=== PATIENT | female | born 1940 | race Caucasian/White ===

== ENCOUNTER → 2019-12-02 | Outpatient (CLI) | payer BC, OTHER ==
[~2019-12-02] MED LIST: PROAIR HFA8.5 GM INH; PROTONIX40 M2 PO; ZESTRIL20 MG PO
== END ==
LOC: LAB 09:49
PROVIDERS: ATTEND Surgery Vascular Surgery
DX: Z01.812 Encounter for preprocedural laboratory examination (principal); Z20.828 Contact with and (suspected) exposure to other viral communicable diseases

== ENCOUNTER → 2019-12-02 | Outpatient (CLI) | payer BC, OTHER ==
[~2019-12-02] MED LIST changes: +ASPIR 8181 MG PO; +ATORVASTATIN CA80 MG PO; +FERREX 150 PLU1 EAC1 PO; +TOPROL XL25 MG PO
== END ==
LOC: ULTRA 09:04
PROVIDERS: ATTEND Surgery Vascular Surgery
DX: Z01.818 Encounter for other preprocedural examination (principal); I25.119 Atherosclerotic heart disease of native coronary artery with unspecified angina pectoris; I65.23 Occlusion and stenosis of bilateral carotid arteries

== ENCOUNTER 2019-12-05 06:10 | Inpatient (IN) | payer MEDICARE, OTHER ==
[2019-12-02 12:28] LABS: ABSOLUTE NEUTROPHILS 3.8 thou/uL (1.4-8.2); BASOPHILS 0.8 % (0.0-2.0); EOSINOPHILS 1.9 % (0.0-3.0); HEMATOCRIT 38.6 % (37.0-47.0); HEMOGLOBIN 12.7 gm/dL (12.0-15.0); LYMPHOCYTES 30.3 % (24.0-44.0); MCH 29.3 pg (26.0-34.0); MCHC 32.9 g/dL (28.0-37.0); MONOCYTES 6.5 % (1.0-8.0); PLATELET COUNT 356 thou/uL (150-400); POLYS 60.5 % (36.0-66.0); RBC 4.34 mil/uL (4.20-5.00); RDW 13.2 % (10.5-14.5); URINE BILIRUBIN NEGATIVE (Negative); URINE BLOOD 1+ (Negative); URINE CLARITY CLEAR; URINE COLOR YELLOW; URINE GLUCOSE-RANDOM* NEGATIVE (Negative); URINE KETONES NEGATIVE (Negative); URINE LEUKOCYTES-REFLEX 1+ (Negative); URINE NITRITE-REFLEX NEGATIVE (Negative); URINE PROTEIN (DIPSTICK) NEGATIVE (Negative); URINE SPECIFIC GRAVITY 1.025 (1.005-1.035); URINE UROBILINOGEN 0.2 E.U./dl (0.2-1.0); WBC 6.2 thou/uL (4.0-11.0)
--- NOTE | 2019-12-02 12:41 | EKG ---
[facility] [place] [address] ELECTROCARDIOGRAM REPORT Name: OLIMPIA WOOD Room #: [facility] IN ..#: [id number] Admission: Attend Phys: Joel Emerson MD Discharge: Date of : 44 Report #: [id number] THIS REPORT FOR: cc: Jason Ovalles MD, Douglas W. MD Santiago, Patrick MD [facility] ~ THIS REPORT FOR: //name// [facility] Test Date: 2019-12-02 Test Time: 11:55:11 Pat Name: OLIMPIA WOOD Department: Room: Gender: F Supervisor Lime: Sarah HOOK : 1940 Requested By: Joel Emerson Order Number: [id number] : Saúl Hardwick Measurements Intervals [place] Rate: 65 P: 34 NC: 141 QRS: -6 QRSD: 108 T: 32 QT: 407 QTc: 424 Interpretive Statements Sinus rhythm Borderline low voltage, extremity leads No previous ECG available for comparison Electronically Signed On 12-02-2019 12:41:44 CDT by Saúl Hardwick [email or web address] <ELECTRONICALLY SIGNED> By: Saúl Hardwick MD, FACC 12/02/19 1241 1155 1155 Saúl Hardwick MD, FACC /EPI
[2019-12-02 12:43] LABS: APTT 29.8 Seconds (24.5-32.8); PROTIME 10.1 Seconds (9.3-11.4)
[2019-12-02 12:46] LABS: ALBUMIN 3.9 g/dL (3.4-5.0); CALCIUM 8.7 mg/dL (8.5-10.1); CREATININE 0.9 mg/dL (0.6-1.0); POTASSIUM 4.6 mmol/L (3.5-5.1); TOTAL BILIRUBIN 0.4 mg/dL (0.2-1.0); TOTAL PROTEIN 7.8 g/dL (6.4-8.2)
[2019-12-02 13:14] LABS: SQUAMOUS >10 Many /LPF (0-3)
[2019-12-02 13:15] LABS: CASTS None Seen /LPF (None Seen); CRYSTALS None Seen /LPF (None Seen); MUCUS 0-3 Light strn/LPF (None Seen); URINE RBC 3-10 Few /HPF (0-2); URINE WBC-REFLEX 6-15 Few /HPF (0-5)
[2019-12-03 01:06] LABS: GLYCOHEMOGLOBIN (HGB A1C) 6.1 % (4.8-5.6)
[~2019-12-05] VITALS: Ht 162.6 cm; Wt 109.8 kg
[2019-12-05] VITALS (15 sets, daily range): BP systolic 78–143; BP diastolic 36–69
[~2019-12-05 06:10] MED LIST changes: -ASPIR 8181 MG PO; -ATORVASTATIN CA80 MG PO; -FERREX 150 PLU1 EAC1 PO; -TOPROL XL25 MG PO
[2019-12-05 14:14] LABS: MCH 29.2 pg (26.0-34.0); MCHC 32.9 g/dL (28.0-37.0); MCV 88.8 fL (80.0-100.0); RBC 2.56 mil/uL (4.20-5.00); RDW 12.9 % (10.5-14.5); WBC 15.9 thou/uL (4.0-11.0)
[2019-12-05 14:15] LABS: HEMATOCRIT 22.8 % (37.0-47.0); HEMOGLOBIN 7.5 gm/dL (12.0-15.0)
[2019-12-05 14:35] LABS: APTT 26.9 Seconds (24.5-32.8); FIBRINOGEN 187.2 mg/dL (210-360); INR 1.5; PROTIME 15.7 Seconds (9.3-11.4)
[2019-12-05 14:56] LABS: POC BE 0 mmol/L (-2.0 to +3.0); POC CA IONIZED 4.7 mg/dL (4.5-5.3); POC GLUCOSE 116 mg/dL (70-99); POC HEMOGLOBIN 11.6 g/dL (12.0-15.0); POC POTASSIUM 4.3 mmol/L (3.5-5.1); POC SODIUM 137 mmol/L (136-145); POC pCO2 36.1 mmHg (35.0-45.0)
[2019-12-05 14:56] LABS: POC BE 2 mmol/L (-2.0 to +3.0); POC CA IONIZED 4.1 mg/dL (4.5-5.3); POC GLUCOSE 125 mg/dL (70-99); POC HCO3 25.6 mmol/L (22.0-26.0); POC HEMOGLOBIN 8.8 g/dL (12.0-15.0); POC POTASSIUM 4.5 mmol/L (3.5-5.1); POC SODIUM 138 mmol/L (136-145); POC pCO2 36.9 mmHg (35.0-45.0); POC pH 7.449 (7.360-7.450)
[2019-12-05 14:56] LABS: POC BE -2 mmol/L (-2.0 to +3.0); POC CA IONIZED 4.6 mg/dL (4.5-5.3); POC GLUCOSE 147 mg/dL (70-99); POC HCO3 23.6 mmol/L (22.0-26.0); POC HEMOGLOBIN 10.9 g/dL (12.0-15.0); POC POTASSIUM 3.9 mmol/L (3.5-5.1); POC SODIUM 138 mmol/L (136-145); POC pH 7.368 (7.360-7.450)
[2019-12-05 14:56] LABS: POC BE -2 mmol/L (-2.0 to +3.0); POC CA IONIZED 4.4 mg/dL (4.5-5.3); POC GLUCOSE 131 mg/dL (70-99); POC HCO3 23.3 mmol/L (22.0-26.0); POC HEMOGLOBIN 8.5 g/dL (12.0-15.0); POC POTASSIUM 3.9 mmol/L (3.5-5.1); POC SODIUM 142 mmol/L (136-145); POC pCO2 40.3 mmHg (35.0-45.0); POC pH 7.369 (7.360-7.450)
[2019-12-05 14:57] LABS: POC BE -3 mmol/L (-2.0 to +3.0); POC CA IONIZED 5.1 mg/dL (4.5-5.3); POC GLUCOSE 129 mg/dL (70-99); POC HCO3 22.7 mmol/L (22.0-26.0); POC HEMOGLOBIN 8.2 g/dL (12.0-15.0); POC POTASSIUM 4.1 mmol/L (3.5-5.1); POC SODIUM 142 mmol/L (136-145); POC pCO2 43.1 mmHg (35.0-45.0)
[2019-12-05 14:57] LABS: POC BE -4 mmol/L (-2.0 to +3.0); POC CA IONIZED 4.8 mg/dL (4.5-5.3); POC GLUCOSE 122 mg/dL (70-99); POC HCO3 21.6 mmol/L (22.0-26.0); POC HEMOGLOBIN 8.8 g/dL (12.0-15.0); POC POTASSIUM 4.1 mmol/L (3.5-5.1); POC SODIUM 142 mmol/L (136-145); POC pCO2 39.5 mmHg (35.0-45.0); POC pH 7.347 (7.360-7.450)
[2019-12-05 14:57] LABS: POC BE -1 mmol/L (-2.0 to +3.0); POC CA IONIZED 4.3 mg/dL (4.5-5.3); POC GLUCOSE 133 mg/dL (70-99); POC HEMOGLOBIN 8.5 g/dL (12.0-15.0); POC POTASSIUM 3.7 mmol/L (3.5-5.1); POC SODIUM 142 mmol/L (136-145); POC pCO2 42.3 mmHg (35.0-45.0); POC pH 7.362 (7.360-7.450)
[2019-12-05 14:57] LABS: POC BE -1 mmol/L (-2.0 to +3.0); POC CA IONIZED 4.3 mg/dL (4.5-5.3); POC GLUCOSE 127 mg/dL (70-99); POC HCO3 24.5 mmol/L (22.0-26.0); POC HEMOGLOBIN 8.2 g/dL (12.0-15.0); POC POTASSIUM 4.1 mmol/L (3.5-5.1); POC SODIUM 142 mmol/L (136-145); POC pCO2 44.2 mmHg (35.0-45.0); POC pH 7.352 (7.360-7.450)
[2019-12-05 14:57] LABS: POC BE -1 mmol/L (-2.0 to +3.0); POC CA IONIZED 4.5 mg/dL (4.5-5.3); POC GLUCOSE 132 mg/dL (70-99); POC HCO3 23.9 mmol/L (22.0-26.0); POC HEMOGLOBIN 8.8 g/dL (12.0-15.0); POC POTASSIUM 3.9 mmol/L (3.5-5.1); POC SODIUM 140 mmol/L (136-145); POC pCO2 40.5 mmHg (35.0-45.0); POC pH 7.378 (7.360-7.450)
[2019-12-05 16:01] LABS: HEMATOCRIT 27.2 % (37.0-47.0); HEMOGLOBIN 8.9 gm/dL (12.0-15.0); MCH 28.9 pg (26.0-34.0); MCHC 32.8 g/dL (28.0-37.0); RBC 3.09 mil/uL (4.20-5.00); RDW 13.3 % (10.5-14.5); WBC 17.5 thou/uL (4.0-11.0)
[2019-12-05 16:12] LABS: BE(vivo) -5.6 mmol/L (-2 to +3); HCO3 20.2 mmol/L (22.0-26.0); PCO2 40.5 mmHg (35.0-45.0); PO2 83.7 mmHg (80.0-100.0); sO2 95.5 % (92.0-98.0)
[2019-12-05 16:14] LABS: pH 7.315 (7.360-7.450)
[2019-12-05 16:23] LABS: CALCIUM 8.1 mg/dL (8.5-10.1); CREATININE 0.7 mg/dL (0.6-1.0); MAGNESIUM 2.6 mg/dL (1.8-2.4); POTASSIUM 4.7 mmol/L (3.5-5.1)
[2019-12-05 16:40] LABS: APTT 27.1 Seconds (24.5-32.8); INR 1.2; PROTIME 11.8 Seconds (9.3-11.4)
--- NOTE | 2019-12-05 16:48 | NUR ---
ASSESSMENTS AND INTERVENTIONS DOCCUMENTED. PATIENT ARRIVED TO THE UNIT AT 1530 WITH ANESTHESIA AND PREMIUM AUDITOR. PATIENT SETTLED INTO ICU ROOM. PATIENT ON PROPOFOL GTT. LINES IN TACT AND PATENT. DR. DEVLIN AND BRIAN HERNANDEZ AT BEDSIDE. NO NEW ORDERS. AROUND 1633, PATIENT'S RUSTY AT BEDSIDE. BRIAN HERNANDEZ SPEAKING WITH . RN UPDATING AND EDUCATING ABOUT POC, GOALS, ICU VISITATION POLICY AND PATIENT'S CODE GIVEN. PATIENT STABLE AT THIS TIME.
[2019-12-05 18:37] LABS: BE(vivo) -5.9 mmol/L (-2 to +3); HCO3 19.2 mmol/L (22.0-26.0); PCO2 36.2 mmHg (35.0-45.0); PO2 122.2 mmHg (80.0-100.0); pH 7.342 (7.360-7.450); sO2 98.3 % (92.0-98.0)
[2019-12-05 20:47] LABS: BE(vivo) -5.5 mmol/L (-2 to +3); HCO3 20.4 mmol/L (22.0-26.0); PCO2 41.8 mmHg (35.0-45.0); PO2 90.4 mmHg (80.0-100.0); pH 7.307 (7.360-7.450); sO2 96.2 % (92.0-98.0)
[2019-12-06] VITALS (14 sets, daily range): BP systolic 105–128; BP diastolic 46–58
--- NOTE | 2019-12-06 00:55 | NUR ---
RECEIVED PATIENT REPORT FROM LISSY MEYERS. ASSUMED PATIENT CARE AT THIS TIME. BEDSIDE CHECKS/INTRODUCTIONS MADE. 0130 PATIENT C/O CONTINUED PAIN 10/10 ML STERNAL CP. PRN HYDROCODONE GIVEN. PATIENT STATED THAT SHE NORMALLY ONLY TAKES TYLENOL AT HOME FOR ANY PAIN. ONLY 1 TAB HYDROCODONE GIVEN AT THIS TIME. PATIENT DID TOLERATE SWALLOWING PILL OK WITH SMALL SIP OF WATER AND BITE OF CRACKER. PATIENT DENIES ANY OTHER NEEDS AT THIS TIME.
[2019-12-06 06:05] LABS: HEMATOCRIT 27.7 % (37.0-47.0); HEMOGLOBIN 9.1 gm/dL (12.0-15.0); MCH 29.1 pg (26.0-34.0); MCHC 32.9 g/dL (28.0-37.0); MCV 88.5 fL (80.0-100.0); RBC 3.13 mil/uL (4.20-5.00); RDW 13.5 % (10.5-14.5); WBC 11.1 thou/uL (4.0-11.0)
[2019-12-06 06:10] LABS: CALCIUM 8.1 mg/dL (8.5-10.1); CREATININE 0.7 mg/dL (0.6-1.0); MAGNESIUM 2.4 mg/dL (1.8-2.4); POTASSIUM 4.2 mmol/L (3.5-5.1)
--- NOTE | 2019-12-06 07:35 | EKG ---
[facility] [place] [address] ELECTROCARDIOGRAM REPORT Name: OLIMPIA WOOD Room #: 249- ADM IN M.R.#: [id number] Admission: 12/05/19 Attend Phys: Joel Emerson MD Discharge: Date of : 44 Report #: [id number] THIS REPORT FOR: cc: Jason Ovalles MD, Douglas W. MD Lundgren,Ugo Newton MD [facility] ~ THIS REPORT FOR: //name// [facility] Test Date: 2019-12-05 Test Time: 15:53:37 Pat Name: OLIMPIA WOOD Department: Room: 249 Gender: F Digital Forensics Examiner: LEXY : 1940 Requested By: Edvin Bo Order Number: [id number] MD: Ugo Gibbons Measurements Intervals [place] Rate: 71 P: 52 HI: 162 QRS: 12 QRSD: 141 T: -1 QT: 459 QTc: 499 Interpretive Statements Sinus rhythm IVCD, consider atypical RBBB Compared to ECG 12/02/2019 11:55:11 No significant changes Electronically Signed On 12-06-2019 7:35:43 CDT by Ugo Gibbons [email or web address] <ELECTRONICALLY SIGNED> By: Ugo Gibbons MD, [facility] 12/06/19 0735 1553 1553 Ugo Gibbons MD, [facility] /EPI
--- NOTE | 2019-12-06 07:42 | EKG ---
[facility] Mery Jaquez [facility] [address] ELECTROCARDIOGRAM REPORT Name: OLIMPIA WOOD Room #: 249-P ADM IN M.R.#: [id number] Admission: 12/05/19 Attend Phys: Joel Emerson MD Discharge: Date of : 44 Report #: [id number] THIS REPORT FOR: cc: Jason Ovalles MD, Douglas W. MD Lundgren,Ugo Newton MD [facility] ~ THIS REPORT FOR: //name// [facility] Test Date: 2019-12-06 Test Time: 07:18:52 Pat Name: OLIMPIA WOOD Department: Room: 249 P Gender: F Spout Tender: MCKENZIE : 1940 Requested By: Edvin Bo Order Number: [id number] MD: Ugo Gibbons Measurements Intervals [place] Rate: 95 P: 47 IA: 133 QRS: 54 QRSD: 128 T: 0 QT: 376 QTc: 473 Interpretive Statements Sinus rhythm Atrial premature complex Possible inferior infarct, age indeterminate Compared to ECG 12/05/2019 15:53:37 Atrial premature complex(es) now present Electronically Signed On 12-06-2019 7:42:10 CDT by Ugo Gibbons [email or web address] <ELECTRONICALLY SIGNED> By: Ugo Gibbons MD, [facility] 1940 7 7 Ugo Gibbons MD, [facility] /EPI
--- NOTE | 2019-12-06 08:00 | NUR ---
DR. DEVLIN HERE. STATES WE SHOULD PUT BED IN CHAIR POSITION SINCE ON CARDENE AND GO SLOWLY. ORDERS GIVEN.
--- NOTE | 2019-12-06 10:55 | NUR ---
RD consult received for diet education. S/P CABG on 12/04. Diet newly advanced. Will determine any nutrition education needs once stable and out of ICU
--- NOTE | 2019-12-06 11:30 | NUR ---
BRIAN RYAN HERE. UPDATE GIVEN. ORDERS GIVEN.
--- NOTE | 2019-12-06 16:14 | NUR ---
chart review. spouse asad visited today. cm spoke with him via phone call. intro to cm and dcp. he reported " 5 acres , 1-2 steps to enter then home all on ground level. she was independent and dont tell her what to do. she manage own medication, and drives vehicle. no dme in past. will cont following as needed for dc needs. dcp from home and dc home would be spouse 1st choice.
--- NOTE | 2019-12-06 16:45 | NUR ---
OOB TO CHAIR WITH PT. PT TOLORATED WELL. TITRATING DOWN ON 02. DENIES PAIN. CATHERINE REMOVED FROM LLE. DSG CDI.
[2019-12-07 05:58] LABS: CREATININE 0.7 mg/dL (0.6-1.0); POTASSIUM 4.3 mmol/L (3.5-5.1)
[2019-12-07 06:08] LABS: HEMATOCRIT 23.3 % (37.0-47.0); HEMOGLOBIN 7.9 gm/dL (12.0-15.0); MCH 29.9 pg (26.0-34.0); MCHC 33.8 g/dL (28.0-37.0); MCV 88.6 fL (80.0-100.0); RBC 2.63 mil/uL (4.20-5.00); WBC 11.7 thou/uL (4.0-11.0)
--- NOTE | 2019-12-07 11:17 | NUR ---
Patient up to chair at shift change. Stood and transfered without difficulty. Patient continues on 8l HF NC with o2 sats in the mid 90's. Patient is able to cough at times and bring up beige sputum. No respiratory distress noted. Continues with RT TX. Encourage use of incentive spirometry. Pleural chest tube in place to waterseal -20cm sx. Stable. Heart rate and rhythm stable as well as blood pressure with activity. Pacing wires capped and taped to chest. Patient c/o constipation. Hydrocodone on hold. Using tylenol for pain which seems adequate. Mirlax given last night and colace this am. Patient encourged to increase activity and increase food intake. Patient had some black hot tea to help as well. Physical therapy worked with patient and was able to get patient back to bed without difficulty. Patient then napped for a little over an hour. Dr. Emerson here at this time. will continue to monitor.
--- NOTE | 2019-12-07 11:53 | O ---
[facility] [place] [address] OPERATIVE REPORT Name: OLIMPIA WOOD Room #: 249-P ADM IN M.R.#: [id number] Admission: 12/05/19 Attend Phys: Joel Emerson MD Discharge: Date of : 44 Report #: [id number] THIS REPORT FOR: cc: Jason Ovalles MD, Douglas W. MD Forman,Joel Sunshine MD ~ CC: Jason Emerson DATE OF SERVICE: 12/05/2019 PREOPERATIVE DIAGNOSIS: Coronary artery disease. POSTOPERATIVE DIAGNOSIS: Coronary artery disease. OPERATION: Coronary artery bypass x 6 including left internal mammary artery to left anterior descending artery, saphenous vein to diagonal, marginal 1 (branch 1), marginal 1 (branch 2), and marginal 2 and posterolateral branch of the right coronary artery and endoscopic and open harvest, left greater saphenous vein. SURGEON: Joel Emerson M.D. PASSENGER SCREENER: MARY Arce ANESTHESIA: General. INDICATIONS: The patient is a 79-year-old with coronary artery disease. The patient presents with angina and shortness of breath. Catheterization demonstrates severe 3-vessel coronary artery disease. The patient was seen in the office for Dr. Pisano, who referred her for this procedure. FINDINGS AND TECHNIQUE: After general anesthesia was established, saphenous vein was harvested using a combination of endoscopic and open approach and was prepared for use as a conduit. Exposure was obtained through median sternotomy. Pericardial well was made. Cannulation sutures were placed. Heparin was given. Aorta was cannulated. Right atrium was cannulated. Cardioplegia needle was positioned in the aortic root. Retrograde cardioplegic catheter was placed in coronary sinus. Cardiopulmonary bypass was established. Aorta was cross clamped. Antegrade and retrograde cardioplegia were given. Ice was poured in the pericardial well. The heart was stopped. During electromechanical arrest, the distal anastomoses were performed and end-to-side anastomosis was made between vein and the posterolateral branch of the right coronary artery. Cold cardioplegia was given. I inspected the posterior descending artery and this was completely calcified and not a satisfactory target. [facility] [address] [address] OPERATIVE REPORT Name: ISRAELOLIMPIA L Room #: 249-P [facility] IN M.R.#: [id number] Admission: 12/05/19 Attend Phys: Joel Emerson MD Discharge: Date of : 44 Report #: [id number] A separate segment of vein was sewn in end-to-side fashion to the large second marginal. This was a 1.5 mm vessel. Cold cardioplegia was given. The same segment of vein was sewn in end-to-side fashion to the large second branch of the first marginal. This was a 1.5 mm vessel. Cold cardioplegia was given. Same segment of vein was sewn in end-to-side fashion to the large first branch of the first marginal. This was a 1.5 mm vessel. Cold cardioplegia was given. The same segment of vein was sewn in end-to-side fashion to the diagonal artery. This was a 1.3 mm vessel. Cold cardioplegia was given. Left internal mammary artery was sewn in end-to-side fashion to the distal left anterior descending artery. Patency of this vessel was checked with the temperature technique and the Doppler. Cold cardioplegia was given. Two proximal anastomoses were performed. When these were complete, warm retrograde cardioplegia was given followed by warm continuous blood to the coronary sinus. When this infusion was complete, the crossclamp was removed, de-airing maneuvers were performed. The anastomoses were inspected and found to be satisfactory. As the patient warmed, nice cardiac activity resumed, chest tubes and pacing wires were placed, a marker was placed around the proximal anastomoses. When the patient was warm, she was weaned from cardiopulmonary bypass. Venous cannula was removed. Protamine was given, the aortic cannula was removed. Flows were measured in the bypass grafts. When hemostasis was satisfactory, chest was irrigated with antibiotic solution and closed in the usual fashion. The patient was taken to the Intensive Care Unit in good condition having tolerated the procedure well. Chest x-ray done at the end of the case was satisfactory. <ELECTRONICALLY SIGNED> By: Joel Emerson MD 12/07/19 1153 21 51 Joel Emerson MD /nt
[2019-12-07 16:16] LABS: URINE BILIRUBIN NEGATIVE (Negative); URINE BLOOD 2+ (Negative); URINE CLARITY CLEAR; URINE COLOR YELLOW; URINE GLUCOSE-RANDOM* NEGATIVE (Negative); URINE KETONES NEGATIVE (Negative); URINE LEUKOCYTES-REFLEX NEGATIVE (Negative); URINE NITRITE-REFLEX NEGATIVE (Negative); URINE PROTEIN (DIPSTICK) NEGATIVE (Negative); URINE UROBILINOGEN 0.2 E.U./dl (0.2-1.0)
[2019-12-07 16:24] LABS: CASTS None Seen /LPF (None Seen); SQUAMOUS 0-3 Few /LPF (0-3)
[2019-12-07 16:25] LABS: CRYSTALS None Seen /LPF (None Seen); MUCUS 0-3 Light strn/LPF (None Seen)
[2019-12-07 16:26] LABS: URINE WBC-REFLEX None Seen /HPF (0-5)
[2019-12-08] VITALS (8 sets, daily range): BP systolic 108–146; BP diastolic 51–59
--- NOTE | 2019-12-08 11:22 | NUR ---
CONSULTED TO PLACE A MIDLINE FOR ACCESS. ORDER NOTED AND VERBAL CONSENT OBTAINED AFTER RISKS AND BENIFITS WERE DISCUSSED. THE RIGHT CEPHALIC VEIN WAS WIDLEY PATENT. A #4F POWER INJECTABLE MIDLINE WAS TRIMMED TO 10CM AND PLACED PER HOSPITAL POLICY. LINE SECURED AND RELEASED FOR USE
--- NOTE | 2019-12-08 14:16 | NUR ---
ALERT AND ORIENTED AND VITALS STABLE. WAS MEDICATED WITH PRN PAIN MEDS EARLIER TODAY. PLEURAL CHEST TUBE AND PACER WIRES DC'D BY DR. DEVLIN. UP TO THE CHAIR AND TO THE BATHROOM. TOLERATED DIET BUT POOR APPETITE. A-LINE AND INTRODUCER DC'D AND MIDLINE PLACED BY DISINTEGRATOR. PATIENT TRANSFERRED TO 218 ACCOMPANIED BY AND BELONGINGS WITH PATIENT.
--- NOTE | 2019-12-08 20:03 | NUR ---
PT ARRIVED TO CCU 218, ASSESSED, ABLE TO AMBULATE WITH STANDBY OR MINIMAL ASSIST X1, PT SEEMS SOMEWHAT DEPRESSED, HAD BM, USING INCENTIVE SPIROMETER
[2019-12-09 03:14] VITALS: BP 133/59
--- NOTE | 2019-12-09 03:56 | NUR ---
Assumed pt care at 1900. Pt is alert and oriented. No sign of distress noted in pt. Pt is laying in bed. Wound vac and RADHA drain intact. No sign of distress noted in pt. Pt denies pain. Assessment completed and documented. Scheduled meds administered to pt. Tolerated PO intake. No acute events overnight. Continue to monitor pt.
[2019-12-09 04:38] LABS: HEMOGLOBIN 7.8 gm/dL (12.0-15.0); MCH 29.9 pg (26.0-34.0); MCHC 33.8 g/dL (28.0-37.0); MCV 88.5 fL (80.0-100.0); RBC 2.59 mil/uL (4.20-5.00); RDW 13.7 % (10.5-14.5); WBC 9.3 thou/uL (4.0-11.0)
[2019-12-09 05:20] LABS: CALCIUM 8.3 mg/dL (8.5-10.1); CREATININE 0.6 mg/dL (0.6-1.0); POTASSIUM 4.2 mmol/L (3.5-5.1)
--- NOTE | 2019-12-09 07:51 | EKG ---
[facility] [place] [address] ELECTROCARDIOGRAM REPORT Name: OLIMPIA WOOD Room #: 218- ADM IN M.R.#: [id number] Admission: 12/05/19 Attend Phys: Joel Emerson MD Discharge: Date of : 42 Report #: [id number] THIS REPORT FOR: cc: Jason Ovalles MD, Douglas W. MD Lundgren,Ugo Newton MD [facility] ~ THIS REPORT FOR: //name// [facility] Test Date: 2019-12-09 Test Time: 07:02:47 Pat Name: OLIMPIA WOOD Department: Room: 218 P Gender: F Ornamental Plaster Sticker: MCKENZEI : 1940 Requested By: Joel Emerson Order Number: [id number] MD: Ugo Gibbons Measurements Intervals [place] Rate: 83 P: 19 MS: 139 QRS: 8 QRSD: 95 T: 1 QT: 389 QTc: 457 Interpretive Statements Sinus rhythm Small inferior Q waves Compared to ECG 12/06/2019 07:18:52 Atrial premature complex(es) no longer present Electronically Signed On 12-09-2019 7:51:43 CDT by Ugo Gibbons [email or web address] <ELECTRONICALLY SIGNED> By: Ugo Gibbons MD, [facility] 12/09/19 0751 1 Ugo Gibbons MD, [facility] /EPI
[2019-12-09 08:00] VITALS: BP 143/60
--- NOTE | 2019-12-09 11:20 | NUR ---
Patient to possibly dc home tomorrow. She cont on oxygen she doesnt use at home. Sp with multiple HH agenices who either could not staff, could not accept insurnance or could not service area. Referral to [facility] for review.
[2019-12-09 12:00] VITALS: BP 104/53
[2019-12-09 16:15] VITALS: BP 128/60
--- NOTE | 2019-12-09 19:46 | NUR ---
ASSESSMENT DOCUMENTED, VSS AND AFEBRILE. MEDICATED FOR MILD PAIN. WD VAC TO STERNUM, RADHA DRAIN DISCONTINUED. UP IN THE CHAIR THIS AM. PROGRESSING TOWARDS GOALS AND WILL CONTINUE WITH POC.
[2019-12-09 20:15] VITALS: BP 150/53
--- NOTE | 2019-12-10 03:57 | NUR ---
Assumed pt care at 2315. Pt is sleeping in bed. No sign of distress noted in pt. Denies pain. Pt is stabloe throughout the night. No acute events. Continue to monitor. No further needs requested at this time.
[2019-12-10 04:45] VITALS: BP 123/53
[2019-12-10 08:15] VITALS: BP 135/57
--- NOTE | 2019-12-10 10:33 | HC ---
[facility] [place] [address] CONSULTATION Name: OLIMPIA WOOD Room #: 218-P ADM IN M.R.#: [id number] Admission: 12/05/19 Attend Phys: Joel Emerson MD Discharge: Date of : 44 Report #: [id number] THIS REPORT FOR: cc: Jason Ovalles MD, Douglas W. MD Blick, David R. MD [facility] ~ DATE OF SERVICE: 12/09/2019 CARDIOLOGY CONSULTATION HISTORY OF PRESENT ILLNESS: The patient is a 79-year-old white female who I was asked to see in the hospital today after she had coronary artery bypass surgery. The history is obtained from the patient as well as some old records. The patient has a long history of hyperlipidemia and hypertension. She is also overweight, being 5 feet 4 inches, weighing 241 pounds. She is not very active at this time. She had no previous history of heart disease. She does have a history of asthma and does get short of breath when she exerts herself and has occasional edema. She was doing well until this summer when she was out working in the yard when she had a brief syncopal spell. She felt lightheaded. She was referred by my partner, Dr. Heath Pisano, who saw her in the Cardiology Clinic on 10/28/2019. He recommended a nuclear stress test performed at [facility] on 11/14/2019 using Lexiscan. This showed ischemia of the inferior segment as well as the inferolateral segment as well as the anterior wall suggestive of multivessel disease with an ejection fraction of 69%. Dr. Pisano then performed cardiac catheterization at [facility] on 11/19/2019 from the right femoral artery. This showed severe 3-vessel coronary artery disease including chronic occlusion of right coronary artery filled by collaterals. There was normal left ventricular function. She was felt to have severe 3-vessel coronary artery disease and Dr. Pisano recommended coronary artery bypass surgery. The patient was admitted here to [facility] last week after she was seen by Dr. Joel Emerson in the surgical clinic. She underwent 6-vessel bypass surgery, which she tolerated well. Postoperatively, she has had no significant arrhythmias, heart failure or infection. She currently is ambulating with cardiac rehabilitation. Cardiology consultation is requested. PAST MEDICAL HISTORY: Significant for appendectomy, cataract extraction, hysterectomy, hemorrhoidectomy, knee surgery, breast reduction surgery. She has a history of hypertension and hyperlipidemia. She has a history of asthma. MEDICATIONS: Her previous medications include lisinopril, Protonix. She previously was on cholesterol lowering medications, but no longer was taking them. ALLERGIES: SHE HAS PREVIOUS [place]OLERANCE [place] [address] CONSULTATION Name: OLIMPIA WOOD Room #: 218-P [facility] IN M.R.#: [id number] Admission: 12/05/19 Attend Phys: Joel Emerson MD Discharge: Date of : 44 Report #: [id number] FAMILY HISTORY: Both her father and mother of heart disease. SOCIAL HISTORY: She is . She and her live outside of [place], [place]. She is not working at this time. She quit smoking years ago. No alcohol abuse. REVIEW OF SYSTEMS: She has no history of stroke. She has a history of asthma. No history of liver disease, kidney disease, cancer, psychiatric illness, chronic skin condition. PHYSICAL EXAMINATION: GENERAL: Revealed an elderly female lying in bed. She appeared in no distress. VITAL SIGNS: She had a blood pressure of 120/60, pulse is 80, she is afebrile. HEENT: She was anicteric. Conjunctivae pink. Mucous membranes moist. NECK: Veins difficult to assess due to obesity. CHEST: Clear to auscultation. CARDIOVASCULAR: Regular rate without murmur. ABDOMEN: Obese. EXTREMITIES: Had no pitting edema. SKIN: Cool and dry. NEUROLOGIC: Nonfocal. Her ECG postoperatively showed a sinus rhythm with no ST or T-wave change. Her x-ray, she had carotid Doppler study done 12/02/2019 that showed no significant stenosis. Her chest x-ray done today shows some atelectasis, otherwise clear lung whitney. LABORATORY WORK: Sodium 137, BUN 15, creatinine 0.6. Fasting blood sugar 137. White blood cell count 9.3, hemoglobin 7.8, hematocrit 23.0. Hemoglobin A1c was 6.1 with an estimated average glucose of 128. Urinalysis negative for protein. IMPRESSION AND RECOMMENDATIONS: 1. Status post coronary artery bypass surgery. I would recommend aspirin 81 mg a day. 2. Hypertension. The patient is on an CATHERINE inhibitor and beta-kamala. 3. Hyperlipidemia. The patient is on a statin drug. 4. History of asthma. 5. Obesity. Recommend diet and exercise. 6. Anemia. Recommend iron supplements. <ELECTRONICALLY SIGNED> By: Hitesh Kenney MD, FACC 12/10/19 1033 1705 1828 Hitesh Kenney MD, FACC /nt
[2019-12-10] MEDS ORDERED: FERREX 150 PLU1 EAC1 PO (11:01)
[2019-12-10] MEDS ORDERED: ASPIR 8181 MG PO (11:01)
[2019-12-10] MEDS ORDERED: TOPROL XL25 MG PO (11:03)
[2019-12-10] MEDS ORDERED: ATORVASTATIN CA80 MG PO (11:05)
[2019-12-10 12:00] VITALS: BP 135/57
[2019-12-10 12:21] VITALS: BP 139/63
--- NOTE | 2019-12-10 13:32 | NUR ---
ASSUMED CARE AT SHIFT CHANGE, ALERT AND ORIENTED X4. ASSESSMENT DOCUMENTED AND DENIES ANY CP. DISCHARGE AND MEDICATION INSTRUCTIONS GIVEN TO PATIENT AND HER SPOUSE, VERBALIZED UNDERSTANDING AND PATIENT DISCHARGE HOME.
--- NOTE | 2019-12-10 14:55 | NUR ---
FAXED REFERRAL TO [facility] SPOKE WITH HAMILTON IN INTAKE SHE CAN ACCEPT PT [place] FAXED DC ORDERS/SUMMARY RECEIVED CONFIRMATION AND SPOKE WITH HAMILTON SHE WILL NOTIFY PT TIME OF VISITS.
== END 2019-12-10 14:17 | disposition home health service (06) | DRG 236 ==
LOC: ICU 06:10 → TBA 06:10 → PRE 08:52 → ICU 15:22 → 2N 12-08 12:33
PROVIDERS: Internal Medicine; Physician Assistant; ADMIT Surgery Vascular Surgery; ATTEND Surgery Vascular Surgery
PROC: 5A1221Z Performance of Cardiac Output, Continuous (ICD-10-PCS; principal; 2019-12-05)
PROC: 021309W Bypass Coronary Artery, Four or More Arteries from Aorta with Autologous Venous Tissue, Open Approach (ICD-10-PCS; principal; 2019-12-05)
PROC: 02100Z9 Bypass Coronary Artery, One Artery from Left Internal Mammary, Open Approach (ICD-10-PCS; principal; 2019-12-05)
PROC: 06BQ4ZZ Excision of Left Saphenous Vein, Percutaneous Endoscopic Approach (ICD-10-PCS; principal; 2019-12-05)
PROC: 05HD33Z Insertion of Infusion Device into Right Cephalic Vein, Percutaneous Approach (ICD-10-PCS; 2019-12-08)
DX: I25.10 Atherosclerotic heart disease of native coronary artery without angina pectoris (principal); Z68.41 Body mass index [BMI] 40.0-44.9, adult; E78.5 Hyperlipidemia, unspecified; I10 Essential (primary) hypertension; J45.909 Unspecified asthma, uncomplicated; D64.9 Anemia, unspecified; K27.9 Peptic ulcer, site unspecified, unspecified as acute or chronic, without hemorrhage or perforation; G40.409 Other generalized epilepsy and epileptic syndromes, not intractable, without status epilepticus; E66.01 Morbid (severe) obesity due to excess calories; Z79.82 Long term (current) use of aspirin; Z79.899 Other long term (current) drug therapy; Z90.49 Acquired absence of other specified parts of digestive tract; Z90.710 Acquired absence of both cervix and uterus; Z88.6 Allergy status to analgesic agent; Z82.49 Family history of ischemic heart disease and other diseases of the circulatory system
CPT/HCPCS: 10078; 10081; 10204; 27000; 47000; 47001; 47002; 47297; 48888; 50010; 50249; 50409; 50456; 50498; 50643; 50668; 50953; 51301; 52131; 52259; 52287; 52314; 53327; 53358; 54118; 55415; 56455; 56524; 56525; 56526; 56527; 56528; 56531; 56534; 56668; 56719; 56760; 56898; 57093; 57167; 62110; 62950; 65020; 65120; 83006